=== PATIENT | male | born 1995 | race Caucasian/White ===

== ENCOUNTER → 2017-08-02 | Outpatient (CLI) | payer OTHER ==
[2015-04-08 08:31] VITALS: BMI 25.0
[~2017-08-02] MED LIST: ALBU8.5H12 IH; AMOX500T10 PO; BENZ60GE TP; BUPR-127 PO; CYCL10TA29 PO; DESM0.2T15 PO; ESCI20TA38 PO; ESCI20TA8 PO; FLUT16SP19 NS; GABA-547 PO; KET10 PO; METH4TAB66 PO; MIRT-1 PO; MODA100T5 PO; MULT1TAB64 PO; OM-31CAP PO; RIZA10TA PO; VENL75CA58 PO
--- NOTE | 2017-08-02 13:07 | RADIOLOGY IMAGING REPORT ---
FACILITY: [facility] - [place] PATIENT NAME: Alex Graham : 1995 MR: [id number] V: [id number] EXAM DATE: ORDERING PHYSICIAN: JUSTUS GAONA TECHNOLOGIST: Location: [facility] Patient: Alex Graham : 1995 Visit/Account:[id number] Date of Sevice: 08/02/2017 C SPINE W/O CONTRAST COMPARISON: None Additional pertinent history: Focal sensory loss involving both hands and buttocks Technique: Multiplanar multisequence cervical spine MRI was performed without gadolinium enhancement. FINDINGS: Vertebral body height and alignment: Negative Vertebral marrow signal: Negative Vertebral bodies: Negative Cervical spinal cord signal, craniocervical junction and visualized posterior fossa: Negative Surrounding soft tissues: Negative Inspection of the disc spaces reveal the following: C1-C2: Negative C2-C3: Negative C3-C4: Negative C4-C5: Negative C5-C6: Negative C6-C7: Negative C7-T1: Negative Impression: Normal cervical spine MRI without contrast. Report Dictated By: Alfredo Moe MD at 08/02/2017 1:02 PM Report E-Signed By: Alfredo Moe MD at 08/02/2017 1:03 PM WSN:[email or web address]
--- NOTE | 2017-08-02 13:10 | RADIOLOGY IMAGING REPORT ---
[place] [facility] [place] Alex Graham : 1995 MR: [id number] V: [id number] EXAM DATE: ORDERING PHYSICIAN: JUSTUS GAONA TECHNOLOGIST: Location: [facility] Patient: Alex Graham : 1995 Visit/Account:[id number] Date of Sevice: 08/02/2017 T SPINE W/O CONTRAST COMPARISON: None Additional pertinent history: Focal sensory loss including both hands and buttocks. Technique: Multiplanar multisequence thoracic spine MRI was performed without gadolinium enhancement. FINDINGS: Vertebral body height and alignment: Negative Marrow signal: Negative Vertebral bodies: Negative Thoracic spinal cord signal: Negative Disc spaces: Negative Canal and neural foramina: Negative Surrounding soft tissues: Negative IMPRESSION: Normal thoracic spine MRI without contrast. Report Dictated By: Alfredo Moe MD at 08/02/2017 1:05 PM Report E-Signed By: Alfredo Moe MD at 08/02/2017 1:06 PM WSN:[email or web address]
--- NOTE | 2017-08-02 13:11 | RADIOLOGY IMAGING REPORT ---
FACILITY: [facility] - [place] PATIENT NAME: Alex Graham : 1995 MR: [id number] V: [id number] EXAM DATE: ORDERING PHYSICIAN: JUSTUS GAONA TECHNOLOGIST: Location: [facility] - [place] Patient: Alex Graham : 1995 Visit/Account:[id number] Date of Sevice: 08/02/2017 L SPINE W/O CONTRAST COMPARISON: None Additional pertinent history: Focal sensory loss involving the hands and buttocks. Technique: Multiplanar multisequence lumbar spine MRI was performed without gadolinium enhancement. FINDINGS: Vertebral body heights and alignment: Negative. Vertebral marrow signal: Negative. Distal thoracic cord and conus: Negative. The conus ends at T12-L1. Surrounding soft tissues: Negative. Inspection of the disc spaces reveal the following: L5-S1: Minimal circumferential disc bulging with facet hypertrophic changes. Mild bilateral neural fo raminal narrowing without canal stenosis. L4-L5: Minimal circumferential disc bulging with facet hypertrophic changes. Mild bilateral neural fo raminal narrowing without canal stenosis. L3-L4: Negative. L2-L3: Negative. L1-L2: Negative. T12-L1: Negative. IMPRESSION: 1. 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 2. Findings contribute to mild bilateral neural foraminal narrowing at L4-L5 and L5-S1. 3. No underlying canal stenosis or other abnormality noted. Report Dictated By: Alfredo Moe MD at 08/02/2017 1:06 PM Report E-Signed By: Alfredo Moe MD at 08/02/2017 1:09 PM WSN:[email or web address]
== END ==
LOC: MRI 00:43
PROVIDERS: ATTEND Nurse Practitioner Family
DX: M47.896 Other spondylosis, lumbar region (principal); M48.07 Spinal stenosis, lumbosacral region
CPT/HCPCS: 72141; 72146; 72148

== ENCOUNTER 2018-05-23 02:00 | Emergency (ER) | payer OTHER ==
[2015-04-08 08:31] VITALS: Wt 78.9 kg
[2018-05-23] MEDS ORDERED: MODA100T5 PO (02:12)
[2018-05-23] MEDS ORDERED: NS(*) 0.9% 1000 ML BAG 1,000 ML IV ONE (02:31)
[2018-05-23] MEDS ORDERED: ASPIRIN 81 MG CHEW CHEW ONE (02:32)
--- NOTE | 2018-05-23 02:43 | ER Report ---
History and Physical Time Seen By MD: 02:43 Hx. of Stated Complaint: chest pain started a couple days ago. getting worse today. has a cough but doesn't feel like he's sick HPI/ROS CHIEF COMPLAINT: Chest pain HISTORY OF PRESENT ILLNESS: This is a 23 year old male. He is having chest pain. Present for a couple of days. Waxing and waning. Sometimes with sharp quality. Not really affected by exertion or breathing. Tonight seemed to worsen. Has mild cough. No fevers. No palpitations. Has had similar in the past, diagnosed with chest wall pain or inflammation associated with his asthma. No nausea or vomiting, or abdominal pain. Allergies: Coded Allergies: No Known Drug Allergies (Unverified , 05/23/18) Home Meds Active Scripts Rizatriptan Benzoate (MAXALT) 10 Mg Tablet, 1 TAB PO PRN for migraine for 30 Days, #12 TAB 5 Refills Take one as needed for migraine if no effect after 2 hours may take a second tab. Do not exceed 2 tabs in 24 hours Prov:JUSTUS GAONA APRN-C 11/15/17 Reported Medications Modafinil (MODAFINIL) 100 Mg Tablet, 100 MG PO 05/23/18 Discontinued Scripts Gabapentin (GABAPENTIN) 100 Mg Capsule, 1 TAB PO HS, #30 CAPSULE 0 Refills Prov:JUSTUS GAONA APRN-C 09/13/17 Reviewed Nurses Notes: Yes Hx Smoking: No Smoking Status: Never Smoker Exposure to Second Hand Smoke?: No Hx Substance Use Disorder: No Hx Alcohol Use: No Constitutional Vital Sign - Last 24 Hours 05/23/18 05/23/18 05/23/18 05/23/18 02:00 02:06 02:09 02:15 Temp 97.8 Pulse ??? 98 91 Resp 18 13 B/P (MAP) 114/85 (95) 114/85 Pulse Ox 99 95 O2 Delivery Room Air 05/23/18 05/23/18 05/23/18 05/23/18 02:30 02:45 03:00 03:15 Pulse 81 89 71 98 Resp 14 0 20 B/P (MAP) 119/73 (88) 111/66 (81) Pulse Ox 96 91 93 05/23/18 05/23/18 05/23/18 05/23/18 03:30 03:40 03:45 04:00 Pulse ??? 70 57 B/P (MAP) 121/72 (88) 05/23/18 05/23/18 05/23/18 05/23/18 04:05 04:20 04:30 04:35 Pulse 80 58 56 Resp 25 26 28 B/P (MAP) 97/63 (74) Pulse Ox 95 92 92 05/23/18 05/23/18 05/23/18 04:50 05:00 05:05 Pulse 56 54 Resp 27 27 B/P (MAP) 97/59 (72) Pulse Ox 92 93 Intake and Output 05/22/18 05/22/18 05/23/18 15:00 23:00 07:00 Intake Total 1000 ml Balance 1000 ml Physical Exam General Appearance: The patient is alert. No acute distress. Eyes: Pupils are equal, round. No pallor, injection or icterus. ENT: Mucous membranes are moist. Normal oral mucosa. Posterior oropharynx is normal. Neck: Supple and non tender. Respiratory: Lungs are clear to auscultation. Cardiovascular: Regular rate and rhythm. No murmurs, gallops or rubs. Normal capillary refill. Gastrointestinal: Abdomen is soft and non tender. Nondistended. Normal active bowel sounds. Neurological: Alert and oriented x3. No focal neurologic deficits Skin: Warm and dry. Musculoskeletal: No tenderness in palpation of the cervical, thoracic and lumbar spine. DIFFERENTIAL DIAGNOSIS: After history and physical exam, differential diagnosis was considered for chest pain including but not limited to myocardial ischemia, pericarditis pulmonary embolus, chest wall pain, pleural inflammation and pulmonary infectious causes. Medical Decision Making Data Points Result Diagram: 05/23/1822805/23/18228 Laboratory Hematology Test 05/23/18 02:29 Red Blood Count 5.58 M/uL (4.00-5.60) Mean Corpuscular Volume 86.7 fL (80.0-96.0) Mean Corpuscular Hemoglobin 30.5 pg (26.0-33.0) Mean Corpuscular Hemoglobin Concent 35.2 g/dL (32.0-36.0) Red Cell Distribution Width 13.1 % (11.5-14.5) Mean Platelet Volume 9.4 fL (7.2-11.1) Neutrophils (%) (Auto) 52.7 % (39.4-72.5) Lymphocytes (%) (Auto) 38.3 % (17.6-49.6) Monocytes (%) (Auto) 6.9 % (4.1-12.4) Eosinophils (%) (Auto) 1.1 % (0.4-6.7) Basophils (%) (Auto) 1.0 % (0.3-1.4) Nucleated RBC Relative Count (auto) 0.1 /100WBC Neutrophils # (Auto) 4.7 K/uL (2.0-7.4) Lymphocytes # (Auto) 3.4 K/uL (1.3-3.6) Monocytes # (Auto) 0.6 K/uL (0.3-1.0) Eosinophils # (Auto) 0.1 K/uL (0.0-0.5) Basophils # (Auto) 0.1 K/uL (0.0-0.1) Nucleated RBC Absolute Count (auto) 0.01 K/uL D-Dimer Quantitative (PE/DVT) < 0.27 ug/ml (0-0.50) Sodium Level 138 mmol/L (137-145) Potassium Level 3.8 mmol/L (3.5-5.0) Chloride Level 107 mmol/L (98-107) Carbon Dioxide Level 20 mmol/L (22-30) Blood Urea Nitrogen 20 mg/dl (9-21) Creatinine 1.00 mg/dl (0.66-1.25) Glomerular Filtration Rate Calc > 60.0 Random Glucose 103 mg/dl (75-110) Calcium Level 9.5 mg/dl (8.4-10.2) Total Bilirubin 0.3 mg/dl (0.2-1.3) Aspartate Amino Transf (AST/SGOT) 21 U/L (0-35) Alanine Aminotransferase (ALT/SGPT) 29 U/L (0-56) Alkaline Phosphatase 73 U/L (0-126) Troponin I < 0.012 ng/ml Total Protein 6.8 g/dl (6.3-8.2) Albumin 4.2 g/dl (3.5-5.0) Chemistry Test 05/23/18 02:29 White Blood Count 8.9 k/uL (4.5-11.0) Red Blood Count 5.58 M/uL (4.00-5.60) Hemoglobin 17.0 g/dL (14.0-18.0) Hematocrit 48.4 % (42.0-52.0) Mean Corpuscular Volume 86.7 fL (80.0-96.0) Mean Corpuscular Hemoglobin 30.5 pg (26.0-33.0) Mean Corpuscular Hemoglobin Concent 35.2 g/dL (32.0-36.0) Red Cell Distribution Width 13.1 % (11.5-14.5) Platelet Count 227 K/uL (150-450) Mean Platelet Volume 9.4 fL (7.2-11.1) Neutrophils (%) (Auto) 52.7 % (39.4-72.5) Lymphocytes (%) (Auto) 38.3 % (17.6-49.6) Monocytes (%) (Auto) 6.9 % (4.1-12.4) Eosinophils (%) (Auto) 1.1 % (0.4-6.7) Basophils (%) (Auto) 1.0 % (0.3-1.4) Nucleated RBC Relative Count (auto) 0.1 /100WBC Neutrophils # (Auto) 4.7 K/uL (2.0-7.4) Lymphocytes # (Auto) 3.4 K/uL (1.3-3.6) Monocytes # (Auto) 0.6 K/uL (0.3-1.0) Eosinophils # (Auto) 0.1 K/uL (0.0-0.5) Basophils # (Auto) 0.1 K/uL (0.0-0.1) Nucleated RBC Absolute Count (auto) 0.01 K/uL D-Dimer Quantitative (PE/DVT) < 0.27 ug/ml (0-0.50) Glomerular Filtration Rate Calc > 60.0 Calcium Level 9.5 mg/dl (8.4-10.2) Total Bilirubin 0.3 mg/dl (0.2-1.3) Aspartate Amino Transf (AST/SGOT) 21 U/L (0-35) Alanine Aminotransferase (ALT/SGPT) 29 U/L (0-56) Alkaline Phosphatase 73 U/L (0-126) Troponin I < 0.012 ng/ml Total Protein 6.8 g/dl (6.3-8.2) Albumin 4.2 g/dl (3.5-5.0) Coagulation Test 05/23/18 02:29 D-Dimer Quantitative (PE/DVT) < 0.27 ug/ml EKG/Imaging EKG Interpretation 12 lead EKG: Rhythm: normal sinus rhythm, rate 81 [place]: normal QRS: normal ST segments: Negative Imaging CHEST: Indication: Chest pain. Technique: Frontal and lateral views were obtained. Comparison: None available. Skeletal and soft tissue structures: Intact and unremarkable. Heart and mediastinum: Within normal limits. Lung ackerman: Well-expanded and clear. No focal opacities. Pleural spaces: Unremarkable. Impression: No acute process. Report Dictated By: Adrien Kaiser MD at 05/23/2018 4:34 AM ED Course/Re-evaluation Clinical Indication for ER IV: Hydration, IV Access ED Course Negative labs, EKG, x-ray. Appears to be chest wall or possible inflammatory related pain. Recommended anti-inflammatory, rest and increase fluid intake Decision to Disposition Date: May 23, 2018 Decision to Disposition Time: 05:14 Depart Departure Latest Vital Signs Vital Signs Date Time Temp Pulse Resp B/P (MAP) Pulse Ox O2 Delivery O2 Flow Rate FiO2 05/23/18 05:05 54 27 93 05/23/18 05:00 97/59 (72) 05/23/18 02:09 97.8 Room Air Impression: Primary Impression: Chest wall pain Condition: Improved Disposition: HOME OR SELF-CARE Referrals: JUSTUS GAONA APRN [facility] (PCP) Patient Instructions: Chest Wall Pain (ED) Additional Instructions: Your EKG, labs and x-rays were negative today. We do not know for sure what has caused your pain. The most likely cause would be inflammation in the chest wall or lining of the lungs. Take Ibuprofen 200mg over the counter tablets, take 4 tablets every 8 hours as needed for pain. SCARLETT TRISTAN MD May 23, 2018 02:43
[2018-05-23 02:50] LABS: PLATELET COUNT, AUTOMATED 227 K/uL (150-450)
--- NOTE | 2018-05-23 04:39 | RADIOLOGY IMAGING REPORT ---
FACILITY: [facility] PATIENT NAME: Alex Graham : 1995 MR: [id number] V: [id number] EXAM DATE: ORDERING PHYSICIAN: SCARLETT TRISTAN TECHNOLOGIST: Location: [facility] - [place] Patient: Alex Graham : 1995 Visit/Account:[id number] Date of Sevice: 05/23/2018 CHEST: Indication: Chest pain. Technique: Frontal and lateral views were obtained. Comparison: None available. Skeletal and soft tissue structures: Intact and unremarkable. Heart and mediastinum: Within normal limits. Lung ackerman: Well-expanded and clear. No focal opacities. Pleural spaces: Unremarkable. Impression: No acute process. Report Dictated By: Adrien Kaiser MD at 05/23/2018 4:34 AM Report E-Signed By: Adrien Kaiser MD at 05/23/2018 4:35 AM WSN:[id number]
[2018-05-23 05:00] VITALS: BP 97/59
--- NOTE | 2018-05-23 05:24 | EKG ---
FACILITY: [facility] [place] PATIENT NAME: CYN VERONICA : [id number] MR: [id number] V: [id number] EXAM DATE: ORDERING PHYSICIAN: SCARLETT TRISTAN TECHNOLOGIST: RAJ Stinson Reason : CARDIAC Blood Pressure : / mmHG Vent. Rate : 081 BPM Atrial Rate : 081 BPM P-R Int : 166 ms QRS Dur : 102 ms QT Int : 374 ms P-R-T Axes : 078 089 073 degrees QTc Int : 434 ms Normal sinus rhythm ST elevation, consider early repolarization, pericarditis, or injury Abnormal ECG When compared with ECG of 17-FEB-2015 11:42, No significant change was found Confirmed by AISHWARYA MORA ([id number]) on 05/23/2018 6:34:58 AM Referred By: Confirmed By:AISHWARYA MORA
== END 2018-05-23 05:25 | disposition home or self-care (01) ==
LOC: ER 02:43
DX: R07.89 Other chest pain (principal)
CPT/HCPCS: 71046; 84484; 85025; 85379; 93005; 96360; 99283; J7030; 82040; 82247; 82310; 82374; 82435; 82565; 82947; 84075; 84132; 84155; 84295; 84450; 84460; 84520